=== PATIENT | male | born 1950 | race Caucasian/White ===

== ENCOUNTER → 2019-06-08 | Outpatient (CLI) | payer MEDICARE, BC | END | disposition home or self-care (01) | LOC: ROC 05-31 14:37 | PROVIDERS: ATTEND Radiology Radiation Oncology | DX: Z08 Encounter for follow-up examination after completed treatment for malignant neoplasm (principal); C61 Malignant neoplasm of prostate | CPT/HCPCS: G0463 ==

== ENCOUNTER 2019-06-12 07:28 | Outpatient (CLI) | payer MEDICARE, BC ==
[2019-06-12] MEDS ORDERED: LIDOCAINE/PF 1%, 30ML IV ONE (10:00)
[2019-06-12] MEDS ORDERED: MIDAZOLAM 1 MG/ML, 5ML IVPush ONE (10:00)
[2019-06-12] MEDS ORDERED: FENTANYL PF 100 MCG/2ML IVPush ONE (10:00)
== END 2019-06-12 23:59 | disposition home or self-care (01) ==
LOC: ROC 07:28
PROVIDERS: ATTEND Radiology Radiation Oncology
DX: C61 Malignant neoplasm of prostate (principal); I10 Essential (primary) hypertension; F17.210 Nicotine dependence, cigarettes, uncomplicated; Z88.0 Allergy status to penicillin; Z88.1 Allergy status to other antibiotic agents
CPT/HCPCS: 55876; 76942; 77332; 99156; A4648; J2250; J3010

== ENCOUNTER → 2019-10-15 | Outpatient (CLI) | payer MEDICARE, BC | END | disposition home or self-care (01) | LOC: ROC 08:25 | PROVIDERS: ATTEND Radiology Radiation Oncology | DX: Z08 Encounter for follow-up examination after completed treatment for malignant neoplasm (principal); C61 Malignant neoplasm of prostate | CPT/HCPCS: G0463 ==